=== PATIENT | male | born 1965 | race Caucasian/White ===

== ENCOUNTER 2019-04-02 08:42 | Inpatient (IN) | payer OTHER ==
[~2019-04-02] VITALS: Ht 182.9 cm; Wt 96.2 kg
[~2019-04-02 08:42] MED LIST: ACETAMINOPHEN-1 EAC1; ALLER-FLO15.8 ML NASAL; ASPIR 8181 MG PO; BIOTIN10000 MC1 PO; CEFUROXIME500 MG PO; FLEXERIL; GLUCOPHAGE XR500 MG PO; LIDODERM1 EACH TOP; LISINOPRIL10 MG PO; MEN'S MULTI-VI1 EACH PO; METHYLIN 10 MG10 MG PO; METHYLPHENIDATE10 M5; METHYLPHENIDATE20 M1; OMEPRAZOLE40 MG PO; OXYCONTIN10 M1; OXYCONTIN20 M1; PERCOCET 10-321 EACH; PRAVASTATIN SOD10 MG PO; TRAZODONE HCL100 MG PO; ZANTAC 150MG T150 MG PO; ZOLOFT100 MG PO
[2019-04-02] MEDS ORDERED: ALPRAZOLAM XR3 MG PO (09:02)
[2019-04-02] MEDS ORDERED: DEXTROAMPHETAMIN5 M2 PO (09:03)
[2019-04-02] MEDS ORDERED: SEROQUEL 25 MG25 MG PO (09:03)
[2019-04-02] MEDS ORDERED: PERCOCET 10-321 EAC1 PO (09:04)
[2019-04-02 09:05] VITALS: BP 139/95
[2019-04-02 09:22] LABS: HEMOGLOBIN 17.9 gm/dL (14.0-18.0); MCH 30.7 pg (26.0-34.0); MCHC 33.7 g/dL (28.0-37.0); MCV 91.3 fL (80.0-100.0); MPV 8.2 fl. (7.2-11.1); NUCLEATED RBCS 0 /100WBC; PLATELET COUNT* 249 thou/uL (150-400); RBC 5.81 mil/uL (4.50-6.00); RDW-CV 14.1 % (10.5-14.5); WBC 23.6 thou/uL (4.0-11.0)
[2019-04-02 09:32] LABS: APTT 23.1 Seconds (25.0-31.3); INR 1.1; PROTIME 11.2 Seconds (9.20-11.50)
[2019-04-02 09:34] LABS: ANION GAP 11 mmol/L (7-16); BUN 24 mg/dL (7-18); CALCIUM 7.7 mg/dL (8.5-10.1); CHLORIDE 101 mmol/L (98-107); CO2 27 mmol/L (21-32); CREATININE 2.6 mg/dL (0.6-1.3); GLUCOSE 170 mg/dL (70-99); POTASSIUM 5.4 mmol/L (3.5-5.1); SODIUM 139 mmol/L (136-145)
[2019-04-02 09:38] LABS: ALBUMIN 4.1 g/dL (3.4-5.0); ALKALINE PHOSPHATASE 76 U/L (46-116); CHOLESTEROL 123 mg/dL (<200); HDL CHOLESTEROL 29 mg/dL (>40); LDL CHOLESTEROL 63 mg/dL (<100); MAGNESIUM 2.5 mg/dL (1.8-2.4); SGOT 297 U/L (15-37); SGPT 77 U/L (30-65); TC:HDL 4.2 Ratio (Not establshd); TOTAL BILIRUBIN 0.4 mg/dL (<0.1-1.0); TOTAL PROTEIN 7.3 g/dL (6.4-8.2); TRIGLYCERIDE 155 mg/dL (<150); VLDL 31 mg/dL (<40)
[2019-04-02 09:39] LABS: SERUM ASSESSMENT Clear
[2019-04-02 09:44] LABS: ACETAMINOPHEN 22 ug/mL (10-30); ALCOHOL < 10 mg/dL (<10); SALICYLATE < 2.8 mg/dL (2.8-20.0)
[2019-04-02 10:09] LABS: ABSOLUTE LYMPHOCYTES 2.4 thou/uL (0.8-5.3); ABSOLUTE MONOCYTES 0.9 thou/uL (0.0-1.2); ABSOLUTE NEUTROPHILS 20.3 thou/uL (1.6-8.1); ATYPICAL LYMPHS 6 %; PLATELET ESTIMATE ADEQUATE
[2019-04-02 13:32] VITALS: BP 162/87
--- NOTE | 2019-04-02 14:14 | EKG ---
[place] [address] ELECTROCARDIOGRAM REPORT Name: TANNER CRUZ Room: [address] ADM IN M.R.#: [id number] Admission: 04/02/19 Attend Phys: Dwight Farmer MD Discharge: Date of : 63 Report #: [id number] THIS REPORT FOR: //name// [facility] ED Test Date: 2019-04-02 Test Time: 09:02:43 Pat Name: TANNER CRUZ Department: Room: [facility] Gender: M [employer]: : 1965 Requested By: Compa Viveros Order Number: [id number] MD: Kelby Martinez Measurements Intervals [place] Rate: 86 P: 62 TX: 222 QRS: 40 QRSD: 94 T: 61 QT: 319 QTc: 382 Interpretive Statements Sinus tachycardia Prolonged [place] interval Artifact in lead(s) V5 and baseline wander in lead(s) V3,V4,V5,V6 Compared to ECG 12/15/2016 12:25:51 Heart rate has increased Artifact is noted Electronically Signed On 04-02-2019 14:13:54 [employer] by Kelby Martinez [email or web address] <ELECTRONICALLY SIGNED> By: Kelby Martinez MD, [facility] 04/02/19 1413 09 09 Kelby Martinez MD, FAC /EPI
== END 2019-04-02 18:40 | disposition short-term general hospital (02) | DRG 917 ==
LOC: M.ERS 08:42 → M.TBA-ER 11:59 → M.ICU 13:30
PROVIDERS: Emergency Medicine; ADMIT Internal Medicine
DX: T40.2X2A Poisoning by other opioids, intentional self-harm, initial encounter (principal); A41.9 Sepsis, unspecified organism; J96.00 Acute respiratory failure, unspecified whether with hypoxia or hypercapnia; G92 Toxic encephalopathy; J69.0 Pneumonitis due to inhalation of food and vomit; N17.0 Acute kidney failure with tubular necrosis; K50.90 Crohn's disease, unspecified, without complications; E11.9 Type 2 diabetes mellitus without complications; G89.29 Other chronic pain; F41.8 Other specified anxiety disorders; F17.210 Nicotine dependence, cigarettes, uncomplicated; M54.5 Low back pain; Z79.891 Long term (current) use of opiate analgesic; Z79.899 Other long term (current) drug therapy